=== PATIENT | male | born 1985 ===

== ENCOUNTER → 2024-11-11 12:33 | Outpatient (CLI) | payer OTHER ==
[~2024-11-11 12:33] MED LIST: DEPAKOTE ER500 MG PO; GRALISE600 MG PO; NAPR500T14 PO; PEPCID AC20 MG PO; PROTONIX40 MG PO; SEROQUEL50 MG PO; VISTARIL50 MG/ML PO
[2024-11-11 14:35] LABS: COL EPI 137 SECONDS (82-175)
== END | disposition home or self-care (01) ==
LOC: LAB 12:33
PROVIDERS: ATTEND Internal Medicine Geriatric Medicine
DX: D68.9 Coagulation defect, unspecified (principal); D69.6 Thrombocytopenia, unspecified

== ENCOUNTER 2024-11-16 10:00 | Day surgery (SDC) | payer OTHER ==
[2024-11-16] MEDS ORDERED: CEFTRIAXONE SODIUM 2,000 MG VIAL ONE (12:25)
[2024-11-16] MEDS ORDERED: METRONIDAZOLE/SODIUM CHLORIDE 500 MG/100 ML PIGGYBACK IV ONE (12:25)
[2024-11-16] MEDS ORDERED: DIBUCAINE 30 GM TUBE ONE (14:02)
[2024-11-16] MEDS ORDERED: POVIDONE-IODINE 118 ML BOTT TOP ONE (14:02)
[2024-11-16] MEDS ORDERED: HEMOSTATIC MATRIX 1 KIT KIT TOP ONE (14:48)
[2024-11-16] MEDS ORDERED: SUGAMMADEX SODIUM 200 MG/2 ML VIAL IV ONE (15:12)
[2024-11-16] MEDS ORDERED: MORPHINE SULFATE 4 MG/ML VIAL IV ONE ×2 (16:05→16:35)
== END 2024-11-16 17:55 | disposition home or self-care (01) ==
LOC: CIR.AMB 10:00
PROVIDERS: ATTEND Colon & Rectal Surgery
DX: K60.0 Acute anal fissure (principal); K62.4 Stenosis of anus and rectum; K64.2 Third degree hemorrhoids